=== PATIENT | female | born 1985 | race American Indian/Alaskan Native ===

== ENCOUNTER 2017-09-12 14:31 | Emergency (ER) | payer MEDICAID ==
[2017-09-12 14:39] VITALS: BP 118/79; PULSE 68; RESP 18; TEMP 98.1; O2SAT 100
--- NOTE | 2017-09-12 14:56 | C.PDOC ---
History Of Present Illness 32 year old female presents to the ED with complaints of pain to the right sided neck and throat for 5 months. Patient was seen by PMD and was given antibiotics but the pain keeps coming back. Patient also went to her dentist for a left sided toothache and was given penicillin 2 weeks ago. She denies any fever, chills, dysphagia, headache, cough or shortness of breath. Time Seen by Provider: 09/12/17 14:45 Chief Complaint (Nursing): Pain, Chronic History Per: Patient History/Exam Limitations: no limitations Onset/Duration Of Symptoms: Other (5 months) Current Symptoms Are (Timing): Still Present Past Medical History Reviewed: Historical Data, Nursing Documentation, Vital Signs Vital Signs: Last Vital Signs Temp 98.1 F 09/12/17 14:38 Pulse 68 09/12/17 14:38 Resp 18 09/12/17 14:38 BP 118/79 09/12/17 14:38 Pulse Ox 100 09/12/17 15:19 - Medical History PMH: No Chronic Diseases Surgical History: No Surg Hx Family History: States: No Known Family Hx - Social History Hx Tobacco Use: Yes Hx Alcohol Use: No Hx Substance Use: No - Immunization History Hx Tetanus Toxoid Vaccination: No Hx Influenza Vaccination: No Hx Pneumococcal Vaccination: No Review Of Systems Except As Marked, All Systems Reviewed And Found Negative. Constitutional: Negative for: Fever, Chills ENT: Positive for: Throat Pain Respiratory: Negative for: Cough, Shortness of Breath Musculoskeletal: Positive for: Neck Pain (left sided) Neurological: Negative for: Headache, Other (DYSPHAGIA ) Physical Exam - Physical Exam Appears: Non-toxic, No Acute Distress Skin: Normal Color, Warm, Dry Head: Atraumatic, Normacephalic Eye(s): bilateral: Normal Inspection Ear(s): Bilateral: Normal Nose: Normal Oral Mucosa: Moist Tongue: Normal Appearing Lips: Normal Appearing Neck: Normal ROM, Trachea Deviated, Supple Lymphatic: Adenopathy (Mild tenderness to right submandibular area, no mass, no swelling, no erythema) Chest: Symmetrical Cardiovascular: Rhythm Regular, No Murmur Respiratory: Normal Breath Sounds, No Wheezing Extremity: Bilateral: Atraumatic, Normal ROM Neurological/Psych: Oriented x3, Normal Speech ED Course And Treatment O2 Sat by Pulse Oximetry: 100 (RA) Pulse Ox Interpretation: Normal Medical Decision Making Medical Decision Making: Patient with complaints of several months pain to right side neck, points to submandibular LN. Area is not swollen or indurated, mildly tender. Exam does not show any acute ear or throat infection. She recently finished course of Penicillin. Patient has no fever, vital signs stable. recommend ibuprofen and to follow up with PCP or ENT Disposition Counseled Patient/Family Regarding: Diagnosis, Need For Followup - Disposition Referrals: Care Transport Nurse Service [Outside] Alban Farmer MD [Staff Provider] - Disposition: HOME/ ROUTINE Disposition Time: 14:55 Condition: GOOD Additional Instructions: Take Ibuprofen for any pain or inflammation Please follow up with ENT specialist for further evaluation Instructions: Chronic Lymphadenitis (DC) Forms: [employer] (Hungarian) - POA Present On Arrival: None - Clinical Impression Clinical Impression: Lymphadenopathy, submandibular - PA / INSURANCE CLAIMS ASSISTANT / Resident Statement MD/DO has reviewed & agrees with the documentation as recorded. - Scribe Statement The provider has reviewed the documentation as recorded by the Scribe (Aleida Sadler) All medical record entries made by the Scribe were at my direction and personally dictated by me. I have reviewed the chart and agree that the record accurately reflects my personal performance of the history, physical exam, medical decision making, and the department course for this patient. I have also personally directed, reviewed, and agree with the discharge instructions and disposition.
== END 2017-09-12 15:10 | disposition home or self-care (01) ==
LOC: C.ER 14:31
DX: R59.0 Localized enlarged lymph nodes (principal)

== ENCOUNTER 2017-12-02 09:43 | Day surgery (SDC) | payer MEDICAID ==
[2017-12-02 10:22] VITALS: BP 129/81; PULSE 72; RESP 18; TEMP 98.5; O2SAT 100
--- NOTE | 2017-12-02 10:48 | CP.SDSHP ---
Same Day Surgery H & P - History Proposed Procedure: US guided FNA of submandibular node Pre-Op Diagnosis: submandibular node - Allergies Allergies: Allergies No Known Allergies Allergy (Verified 11/24/17 12:14) - Physical Exam Vital Signs: Vital Signs 12/02/17 09:54 Temperature 98.5 F Pulse Rate 72 Respiratory 18 Rate Blood Pressure 129/81 O2 Sat by Pulse 100 Oximetry Mental Status: Alert & Oriented x3 - Impression Impression: US performed showed a small right submandibular node 1.6 x 0.9 cM( This measured [address] Lymphnode has fatty hilum. Lymph node too small for FNA. No other enlarged lymph node seen in right or left neck. No FNA performed. Pt. Evaluated Today:Candidate for Anesthesia & Procedure: No Short Stay Discharge - Short Stay Discharge Admitting Diagnosis/Reason for Visit: DX: NECK MASS Disposition: HOME/ ROUTINE
--- NOTE | 2017-12-02 12:30 | US ---
Limited soft tissue neck ultrasound History: Neck mass. Comparison: None available. Technique: Real-time sonography was performed through the soft tissues of the neck. Findings: Right neck: Within the submandibular region, there are hypoechoic ovoid foci with central areas of increased echogenicity measuring 1.6 x 0.4 x 0.5 centimeters and 1.4 x 0.3 x 0.7 centimeters suggestive for prominent lymph nodes. Left neck: Within the submandibular region, there are hypoechoic ovoid foci with central areas of increased echogenicity measuring 1.4 x 0.5 x 1.3 centimeters and 0.9 x 0.4 x 0.9 centimeters suggestive for prominent lymph nodes. Impression: Ovoid hypoechoic foci with central areas of increased echogenicity in the bilateral neck as described above suggestive for prominent lymph nodes. Further evaluation with contrast-enhanced neck CT may be helpful if clinically indicated.
== END 2017-12-02 10:20 | disposition home or self-care (01) ==
LOC: C.SPRAD 09:43
PROVIDERS: ATTEND Radiology Vascular & Interventional Radiology
DX: R59.0 Localized enlarged lymph nodes (principal)

== ENCOUNTER 2018-04-26 09:17 | Day surgery (SDC) | payer MEDICAID ==
[2018-04-09 09:15] VITALS: BMI 39.1
--- NOTE | 2018-04-26 10:20 | PCM.SURG1 ---
Surgeon's Initial Post Op Note - Surgeon's Notes Surgeon: Isauro Pratt MD Fire Sprinkler Fitter: NONE Type of Anesthesia: Local Pre-Operative Diagnosis: Neck node Operative Findings: US showed a large right submandibular node. Post-Operative Diagnosis: Neck node Operation Performed: US guided FNA Specimen/Specimens Removed: 25 g FNA x 6 passes Estimated Blood Loss: EBL {In ML}: 1 Blood Products Given: N/A Drains Used: No Drains Post-Op Condition: Good Date of Surgery/Procedure: 04/26/18 Time of Surgery/Procedure: 10:15
--- NOTE | 2018-04-26 10:20 | CP.SDSHP ---
Same Day Surgery H & P - History Proposed Procedure: US guided FNA of neck mass Pre-Op Diagnosis: neck mass - Allergies Allergies: Allergies No Known Allergies Allergy (Verified 11/24/17 12:14) - Impression Impression: Pt with a 1.6 cm right submandibular node. Plan US guided FNA. Pt. Evaluated Today:Candidate for Anesthesia & Procedure: No Short Stay Discharge - Short Stay Discharge Admitting Diagnosis/Reason for Visit: DX: NECK MASS Disposition: HOME/ ROUTINE
--- NOTE | 2018-04-26 13:54 | US ---
PROCEDURE: Date of procedure: 04/26/2018 Procedure: Ultrasound-guided FNA of right supraclavicular lymph node, CPT 52955 Ultrasound guidance for biopsy, 25501 Medications: 3cc 1% Lidocaine HISTORY: Enlarged right submandibular lymph node. TECHNIQUE: Following informed consent and procedure time-out, limited ultrasound patient's right neck demonstrates enlarged submandibular lymph node which is ovoid shape and hypoechoic. The lymph node measures 1.6 centimeters. The patient's neck was prepped and draped in the usual sterile fashion. The skin was anesthetized with 1 percent lidocaine. Ultrasound-guided fine needle aspiration was then performed using a 25 gauge needle. A total of 6 passes were made into the lymph node under direct ultrasound guidance. FNA specimens were obtained and sent for routine pathology and flow cytometry. A post biopsy ultrasound showed no hematoma IMPRESSION: Ultrasound-guided biopsy of enlarged right submandibular lymph node..
== END 2018-04-26 12:02 | disposition home or self-care (01) ==
LOC: C.SPRAD 09:17
PROVIDERS: ATTEND Radiology Vascular & Interventional Radiology
DX: R59.0 Localized enlarged lymph nodes (principal)